=== PATIENT | female | born 1960 | race Caucasian/White ===

== ENCOUNTER → 2016-12-07 | Outpatient (CLI) | payer BC ==
[~2016-12-07] MED LIST: CPR500 PO; OSEL75CA12 PO; OXYC-57 PO
--- NOTE | 2016-12-07 13:07 | MAMMOGRAPHY REPORT ---
BILATERAL DIGITAL SCREENING MAMMOGRAM TOMOSYNTHESIS WITH CAD: 12/07/2016 CLINICAL HISTORY: Routine screening. Patient has no complaints. TECHNIQUE: Breast tomosynthesis in addition to standard 2D mammography was performed. Current study was also evaluated with a Computer Aided Detection (CAD) system. COMPARISON: Comparison is made to exams dated: 12/05/2015 mammogram, 12/03/2014 mammogram - [facility], 04/19/2008, and 04/17/2007. BREAST COMPOSITION: There are scattered areas of fibroglandular density in both breasts. FINDINGS: There are a few benign-appearing calcifications bilaterally. A circumscribed mass in the c entral right breast has decreased in size, confirming benignity. No suspicious mass, architectural d istortion or cluster of suspicious microcalcifications is seen. IMPRESSION: ACR BI-RADS CATEGORY 1: NEGATIVE There is no mammographic evidence of malignancy. A 1 year screening mammogram is recommended. The pa tient will receive written notification of the results. Approximately 10% of breast cancers are not detected with mammography. A negative mammographic report should not delay biopsy if a clinically suggestive mass is present. Maira Berman M.D. ay/:12/07/2016 08:54:45 Supply Chain Procurement Manager: Julisa MEDINA(Ranjit)(Jayleen)([place]), [facility] letter sent: Normal 1/2 BI-RADS Code: ACR BI-RADS Category 1: Negative
== END | disposition home or self-care (01) ==
LOC: C.MAMM 08:32
PROVIDERS: ATTEND Family Medicine
DX: Z12.31 Encounter for screening mammogram for malignant neoplasm of breast (principal)

== ENCOUNTER → 2017-06-07 | Outpatient (CLI) | payer BC ==
[2017-06-07 12:46] LABS: BLOOD UREA NITROGEN 22 mg/dl (7-18); CALCIUM 9.5 mg/dl (8.5-10.1); CARBON DIOXIDE 31 mmol/L (21-32); CREATININE 0.93 mg/dl (0.60-1.20); GLUCOSE 90 mg/dl (70-99); POTASSIUM 4.7 mmol/L (3.5-5.1); SODIUM 139 mmol/L (136-145)
[2017-06-07 12:49] LABS: CHOLESTEROL 160 mg/dl (0-200); LDL CHOLESTEROL CALCULATED 88 mg/dl
== END | disposition home or self-care (01) ==
LOC: C.LABPBG 08:44
PROVIDERS: ATTEND Family Medicine
DX: Z00.00 Encounter for general adult medical examination without abnormal findings (principal); Z13.220 Encounter for screening for lipoid disorders; I10 Essential (primary) hypertension; Z11.59 Encounter for screening for other viral diseases

== ENCOUNTER → 2017-12-09 | Outpatient (CLI) | payer BC ==
--- NOTE | 2017-12-12 07:44 | MAMMOGRAPHY REPORT ---
BILATERAL DIGITAL SCREENING MAMMOGRAM TOMOSYNTHESIS WITH CAD: 12/09/2017 CLINICAL HISTORY: Routine screening. Patient has no complaints. TECHNIQUE: The study was acquired using full field digital technology and interpreted from soft copy. Breast tomosynthesis in addition to standard 2D mammography was performed. Current study was also ev aluated with a Computer Aided Detection (CAD) system. COMPARISON: Comparison is made to exams dated: 12/07/2016 mammogram, 12/05/2015 mammogram, 12/03/2014 [facility], 04/19/2008, and 04/17/2007. BREAST COMPOSITION: There are scattered areas of fibroglandular density in both breasts. FINDINGS: No suspicious masses, calcifications, or areas of architectural distortion are noted in either breast . There has been no significant interval change compared to prior exams. IMPRESSION: ACR BI-RADS CATEGORY 1: NEGATIVE There is no mammographic evidence of malignancy. A 1 year screening mammogram is recommended.( 019) The patient will receive written notification of the results. Some breast cancers are not detected with mammography. A negative mammographic report should not diego y biopsy if a clinically suggestive mass is present. Zenobia Schwab M.D. /:12/09/2017 12:18:48 Church Secretary: Tracy Carl, [facility] letter sent: Normal 1/2 BI-RADS Code: ACR BI-RADS Category 1: Negative
== END | disposition home or self-care (01) ==
LOC: C.MAMM 08:45
PROVIDERS: ATTEND Family Medicine
DX: Z12.31 Encounter for screening mammogram for malignant neoplasm of breast (principal)

== ENCOUNTER 2018-08-09 05:59 | Inpatient (IN) ==
--- NOTE | 2018-08-03 17:36 | PAT Medication Instructions ---
Medication Instructions Date of Service August 03, 2018 Home Medications Celebrex 1 tab PO HS Sertraline 1.5 tab PO QPM Vitamin D 1 tab PO QAM atenolol 50 mg PO BID rizatriptan [Maxalt] 10 mg PO UD PRN ASK your surgeon for instructions Celebrex 1 tab PO HS DO NOT take the morning of surgery Vitamin D 1 tab PO QAM rizatriptan [Maxalt] 10 mg PO UD NEEDED Take morning of surgery With a small sip of water, OTHERWISE NOTHING TO EAT OR DRINK AFTER MIDNIGHT: atenolol 50 mg PO BID rizatriptan [Maxalt] 10 mg PO UD NEEDED Take evening before surgery Sertraline 1.5 tab PO QPM atenolol 50 mg PO BID Other Notes If you have any questions please call us at [phone] or [phone] or [phone] or [phone]
--- NOTE | 2018-08-04 08:47 | History & Physical Report ---
Date of Service August 04, 2018 Date of Surgery: 08-09-18 Assessment & Plan (1) Tricompartment osteoarthritis of right knee: Risks and benefits of procedure discussed in detail today, patient would like to proceed with Right TKA @ [facility] on 08-09-18 as scheduled. will obtain medical clearance prior to surgery as well as obtain PATs at [facility]. Will place on ASA 81mg po bid x 1 month post op, f/u 2 weeks post op for routine post- operative care and xray, sooner if having any problems. will make arrangements for HHPT at the time of discharge. History of Present Illness Chief Complaint: Right knee pain Primary Care Provider: Breann Salinas MD Ms Horta is a 57 year old female who complains of right knee pain, presents for pre-op evaluation prior to right total knee replacement at [facility] on 08-09-18. She presents with pain on the right side and that the symptoms have been chronic non-traumatic. The symptoms occur constantly with intermittent worsening. Currently the patient states that the symptoms are moderate-severe. The pain is described as sharp. She has been treated with Durolane injection previously without any significant relief, as well as previously Synvisc One. pain now affecting her ADLs including walking, standing, using stairs. at this point has failed conservative measures and would like to proceed with a Right TKA. Allergies Allergy/AdvReac Type Severity Reaction Status Date / Time codeine Allergy Mild NAUSES Verified 08/01/18 12:58 VOMITING Home Medications Home Medications Medication Instructions Recorded Confirmed Type Celebrex 1 tab PO HS 08/01/18 08/01/18 History Sertraline 1.5 tab PO QPM 08/01/18 08/01/18 History Vitamin D 1 tab PO QAM 08/01/18 08/01/18 History atenolol 50 mg PO BID 08/01/18 08/01/18 History rizatriptan [Maxalt] 10 mg PO UD PRN 08/01/18 08/01/18 History Past Med/Surg History Medical History GERD (gastroesophageal reflux disease) Hiatal hernia Hypertension Migraine Morbid obesity Osteoarthritis Temporomandibular joint disorder + CLICKING; NO LOCKING Surgical History History of carpal tunnel release RIGHT History of hysterectomy TOTAL Ureter injury S/P REPAIR X 2 (LEFT SIDE) Social History Preferred Language: [place] Communication Ability: Effective Typing Teacher Required: No Beliefs That Will Affect Care: None Current Living Situation: Spouse Other Information That Helps Us Care for You: No Feels Safe at Home: Yes Safety Concerns: Feels Safe At This Time Smoking Status: Never smoker Hx Alcohol Use: No Hx Substance Use: No Review of Systems All systems reviewed & are unremarkable except as noted in HPI & below Constitutional: no fever, no chills and no sweats Respiratory: no cough Cardiovascular: no chest pain, no dyspnea and no orthopnea Gastrointestinal: no nausea and no vomiting Musculoskeletal: as per Subjective / HPI Physical Exam Vital Signs (Past 24 Hours): Ht: 5ft 2in Wt: 104.3kg BP: 142/78 Pulse: 74 Constitutional: WD/WN, vitals as above no acute distress Respiratory: normal respiratory effort, lungs clear to auscultation Cardiovascular: RRR, no murmur, no edema Gastrointestinal (Abdomen): normal bowel sounds, soft, nontender, no hepatosplenomegaly Musculoskeletal: Right Knee Exam neutral alignment, no atrophy or ecchymosis, mild effusion, diffuse tenderness noted, negative patellar apprehension , mild crepitation with motion, Patella position neutral, madelaine's Negative, Blanca's - lateral positive, Blanca's - medial positive, Posterior drawer- Negative, Anterior drawer Negative, Valgus stress Negative, Varus stress Negative, no Extensor lag, Pain with Active range of motion, also passive painful ROM, Range of motion 0/3/120. No pain with active/passive ROM of ankle. Lower Extremity Strength normal. Lower Extremity Neuro-vascular is normal Skin: no rashes and no lesions Results & Data Diagnostic Findings Right Knee X-ray: Right knee series showing advanced degenerative changes to the right knee, narrowing of the medial compartment and patello-femoral joint with patellar spurring noted, findings showing joint space narrowing of the medial compartment and patello-femoral joint, osteophyte formation and subchondral sclerosis noted. overall varus alignment. no acute bony pathology noted.
--- NOTE | 2018-08-04 11:14 | Anesthesiology Consultation ---
Date of Service August 04, 2018 Assessment & Plan (1) Encounter for pre-operative examination: - PCP addendum= 08/07/18= Preop testing reviewed. "Patient was found to be at acceptable CP risk for the planned procedure and may proceed as scheduled." Chart Review Chart Review: Acceptable Risk for Surgery and Patient seen in Pre Admission Testing Consults Requested none Teaching & Discussion Pre-Anesthesia Teaching/Discussion Notes: Instructed NPO after midnight before surgery,except medications with 15 cc of water. Medication instructions provided according to the PAT guidelines. ASA ASA3 Proposed Anesthesia Anesthesia Type: MAC Spinal Regional Regional Laterality: Right Site: Adductor Canal NPO Date Last Intake of Fluids: 08/09/18 Time Last Intake of Fluids: 04:15 Last Intake of Fluids Comment: Sips of water with medications Date Last Intake of Solids: 08/08/18 Time Last Intake of Solids: 17:00 History Surgery Operation Date: 08/09/18 08:20 Proposed Procedures p Right Total Knee Arthroplasty - Isaac Rivero DO Height/Weight Height: 1.57 m Weight: 109.4 kg Allergies Allergy/AdvReac Type Severity Reaction Status Date / Time codeine Allergy Mild NAUSES Verified 08/09/18 06:15 VOMITING Medications Home Medications Medication Instructions Recorded Confirmed Last Taken Vitamin D 1 tab PO QAM 08/01/18 08/09/18 08/08/18 05:00 atenolol 50 mg PO BID 08/01/18 08/09/18 08/09/18 04:15 rizatriptan [Maxalt] 10 mg PO UD PRN 08/01/18 08/09/18 Unknown sertraline [Zoloft] 150 mg PO HS 08/01/18 08/09/18 08/08/18 21:00 celecoxib [Celebrex] 200 mg PO DAILY 08/09/18 08/09/18 08/08/18 05:00 Active Medications Generic Name Dose Route Start Last Admin Trade Name Freq PRN Reason Stop Dose Admin Acetaminophen 1,000 mg 08/09/18 06:00 08/09/18 06:35 Tylenol PO 08/09/18 18:00 1,000 mg PREOP BALDO Administration Celecoxib 200 mg 08/09/18 06:00 08/09/18 06:34 Celebrex PO 08/09/18 18:00 200 mg PREOP BALDO Administration Dexamethasone 8 mg 08/09/18 06:00 08/09/18 06:35 Decadron PO 08/09/18 18:00 8 mg PREOP BALDO Administration Famotidine 20 mg 08/09/18 06:00 08/09/18 06:34 Pepcid PO 08/09/18 18:00 20 mg PREOP BALDO Administration Gabapentin 600 mg 08/09/18 06:00 08/09/18 06:34 Neurontin PO 08/09/18 18:00 600 mg PREOP BALDO Administration Lactated Ringer's 1,000 mls @ 15 mls/hr 08/09/18 06:00 08/09/18 06:18 Lr IV 08/09/18 18:00 15 mls/hr .Q24H BALDO Administration Past Medical History Medical History GERD (gastroesophageal reflux disease) Well controlled Hiatal hernia Hypertension Migraine Osteoarthritis Temporomandibular joint disorder + CLICKING; NO LOCKING Morbid obesity Past Surgical History Surgical History History of carpal tunnel release RIGHT History of hysterectomy TOTAL Ureter injury S/P REPAIR X 2 (LEFT SIDE) Past Anesthesia History No Hx of Anesthesia Complications and No Family Hx of Anesthesia Complications History of PONV No Motion Sickness Screening History of Motion Sickness: No Social History Smoking Status: Never smoker Do You Dip or Chew Tobacco: No Hx Alcohol Use: No Hx Substance Use: No Exercise / Class Metabolic Activity III < 4 Walking/Shop/Light housework Review of Systems Patient denies chest pain, shortness of breath, cough, wheezing, palpitations. Physical Exam Vital Signs Last Vital Signs Temp 36.7 C 08/09/18 06:18 Pulse 54 L 08/09/18 06:18 Resp 16 08/09/18 06:18 BP 129/88 08/09/18 06:18 Pulse Ox 96 08/09/18 06:18 VITALS BP 117/78 P 58 TEMP 97.7 SP02 93%RA RESP 18 PHYSICAL Full neck and c-spine range of motion. Full TMJ range of motion. TMD 3 finger breaths Mallampati Score 1 Dentition: missing molars Lungs: clear throughout to auscultation Cardiac: regular rate and rhythm, no murmurs noted Spine: normal Carotid arteries: negative bruit Extremities: no edema Short neck Constitutional + morbidly obese ENMT Mouth: + TMJ clicking (Never locks up); no TMJ abnormality Thyromental Distance: > or= 3.5 Finger Breadths Mallampati Class: II Neck normal visual inspection; neck extension not limited Respiratory Auscultation: lungs clear to auscultation bilaterally Cardiovascular Rate/Rhythm: regular rate and regular rhythm Musculoskeletal Spine: normal cervical ROM and no pain with cervical ROM Psychiatric Orientation: alert and oriented x 3 Testing Electrocardiogram Date: 08/04/18 Findings: + NSR @ (62) Chest X-Ray Date: 08/04/18 Findings: + NAD Stress Test Date: 08/16/13 Type: DSE DSE "normal" without resting LV wall motion abnormalities or inducible ischemia. LVEF 60-64%. Grade I DD. Mild functional MR. 90%MPHR. Laboratory Results 08/04/18 11:34 Blood Type A Positive 08/04/18 11:34 Antibody Screen NEGATIVE 08/04/18 11:34 PT 10.7 Seconds (9.0-12.0) 08/04/18 11:34 INR 1.0 (0.9-1.1) 08/04/18 11:34 APTT 24.3 Seconds (21.0-31.0) 08/04/18 11:34 Hemoglobin A1c 5.1 % (4.5-5.6) 08/04/18 11:34 Urine Color Yellow 08/04/18 Unknown Urine Appearance Clear (Clear) 08/04/18 Unknown Urine pH 5.5 (4.5-7.5) 08/04/18 Unknown Ur Specific [place] 1.020 (1.000-1.030) 08/04/18 Unknown Urine Protein Negative (Negative) 08/04/18 Unknown Urine Glucose (UA) Negative (Negative) 08/04/18 Unknown Urine Ketones Negative (Negative) 08/04/18 Unknown Urine Nitrite Negative (Negative) 08/04/18 Unknown Ur Leukocyte Esterase Negative (Negative) 08/04/18 Unknown 07/20/18 SODIUM 140 POTASSIUM 4.0 CHLORIDE 109 CO2 25 BUN 18 CREATININE 0.86 GLUCOSE 95
[2018-08-04 12:03] LABS: Basophils # (auto) 0.02 K/uL (0-0.2); Basophils % (auto) 0.3 %; Eosinophils # (auto) 0.25 K/uL (0-0.5); Eosinophils % (auto) 3.3 %; Hemoglobin 14.1 g/dL (12.0-16.0); Immature Granulocytes # (auto) 0.01 K/uL (0.00-0.02); Immature Granulocytes % (auto) 0.1 %; Lymphocytes # (auto) 1.79 K/uL (1.2-3.4); Lymphocytes % (auto) 23.6 %; Mean Corpuscular Hgb Conc 34.4 g/dL (32-36); Mean Corpuscular Volume 89.7 fL (80-100); Mean Platelet Volume 11.2 fL (7.4-10.4); Monocytes # (auto) 0.49 K/uL (0.11-0.59); Monocytes % (auto) 6.5 %; Neutrophils # (auto) 5.03 K/uL (1.4-6.5); Neutrophils % (auto) 66.2 %; Platelet Count 148 K/uL (130-400); RDW Coefficient of Variation 13.3 % (11.5-14.5); RDW Standard Deviation 43.5 fL (36.4-46.3); Red Blood Count 4.57 M/uL (4.2-5.4); White Blood Count 7.59 K/uL (4.8-10.8)
--- NOTE | 2018-08-04 12:09 | XRay Report ---
XR chest Pre-admission PA/Lat HISTORY: Preop. COMPARISON: Chest 07/30/2012. FINDINGS: The lungs are clear. Cardiac silhouette is normal in size. No pleural effusions. No pneumot horax. IMPRESSION: No acute process. Electronically signed by: Finesse Ortiz M.D. 08/04/2018 12:08 PM
[2018-08-04 12:17] LABS: Appearance Urine Clear (Clear); Bilirubin Urine Negative (Negative); Blood Urine Negative (Negative); Color Urine Yellow; Glucose Urine UA Negative (Negative); Ketones Urine Negative (Negative); Leukocyte Esterase Urine Negative (Negative); Nitrite Urine Negative (Negative); Protein Urine Negative (Negative); Urobilinogen Urine Negative (Negative); pH Urine 5.5 (4.5-7.5)
[2018-08-04 12:18] LABS: Partial Thromboplastin Ratio 0.9; Partial Thromboplastin Time 24.3 Seconds (21.0-31.0); Prothrombin Time 10.7 Seconds (9.0-12.0)
[2018-08-04 12:32] LABS: Estimated Average Glucose 100 mg/dl; Hemoglobin A1C 5.1 % (4.5-5.6)
[2018-08-09] MEDS ORDERED: GABAPENTIN 300 MG x 2 PO SCH (06:00)
[2018-08-09] MEDS ORDERED: CeleBREX 200 MG CAP PO SCH (06:00)
[2018-08-09] MEDS ORDERED: FAMOTIDINE 20 MG TAB PO SCH (06:00)
[2018-08-09] MEDS ORDERED: TRANEXAMIC ACID 1,000 MG **IV Pre-op IV SCH (06:00)
[2018-08-09] MEDS ORDERED: dexAMETHasone 4 MG TAB PO SCH (06:00)
[2018-08-09] MEDS ORDERED: ACETAMINOPHEN 500 MG TAB PO SCH (06:00)
[2018-08-09] MEDS ORDERED: CEFAZOLIN 2000MG 2,000 MG/15 ML SYR IV SCH (06:00)
[2018-08-09] MEDS ORDERED: LR 500ML BOLUS, THEN 15ML/HR IV SCH (06:00)
[2018-08-09] MEDS ORDERED: ROPIVACAINE 0.5% HCL/PF 150 MG, BUPIVACAINE 0.5% MPF 30 ML, EPINEPHrine 30MG/30ML (OR U... INFIL SCH (06:00)
[2018-08-09] MEDS ORDERED: TRANEXAMIC ACID 1,000 MG **IV Intra-op IV SCH (06:30)
[2018-08-09] MEDS ORDERED: BUPIVACAINE 0.5 % 5 MG/1 ML PF 10ML VIAL ONE (06:31)
[2018-08-09] MEDS ORDERED: ROPIVACAINE 0.5% 5 MG/ML 30 ML VIAL ONE (06:32)
[2018-08-09] MEDS ORDERED: ATROPINE SULFATE 0.1 MG/ML 10ML SYR IV PRN (06:52)
[2018-08-09] MEDS ORDERED: HYDROmorphone INJ 1 MG/ML SYRINGE IV PRN (06:52)
[2018-08-09] MEDS ORDERED: ONDANSETRON INJ 2 MG/ML 2 ML VIAL IV PRN ×2 (06:52→10:39)
[2018-08-09] MEDS ORDERED: fentaNYL citrate 100 MCG/2 ML VIAL IV PRN (06:52)
[2018-08-09] MEDS ORDERED: ePHEDrine sulfate 50 MG/ML AMP IV PRN (06:52)
[2018-08-09] MEDS ORDERED: PROMETHAZINE HCL 12.5 MG in SODIUM CHLORIDE 0.9% 50 ML IV PRN (06:52)
[2018-08-09] MEDS ORDERED: PHENYLEPHRINE 100MCG/ML 5ML SYR IV PRN (06:52)
[2018-08-09] MEDS ORDERED: MIDAZOLAM HCL 1 MG/ML 2ML VIAL ONE ×2 (06:59→08:01)
[2018-08-09] MEDS ORDERED: PROPOFOL IV EMULSION 10 MG/ML 20 ML VIAL IV ONE (06:59)
[2018-08-09] MEDS ORDERED: LIDOCAINE HCL 2% 2 ML VIAL/AMP(20MG/ML) INFIL ONE (06:59)
[2018-08-09] MEDS ORDERED: fentaNYL citrate 100 MCG/2 ML VIAL ONE (06:59)
--- NOTE | 2018-08-09 07:06 | History & Physical Bridge Note ---
Date of Service August 09, 2018 History & Physical Bridge Note I have examined the patient, reviewed the History & Physical and in the interval since the performance of the History & Physical I have noted the following changes of clinical significance: no changes noted
[2018-08-09] MEDS ORDERED: ORTHO JOINT ANESTHETIC ONE (07:47)
[2018-08-09] MEDS ORDERED: POVIDONE-IODINE OP SOLN 30 ML BTL ONE (07:47)
[2018-08-09] MEDS ORDERED: BACITRACIN INJ 50,000 UNIT VIAL ONE (07:47)
--- NOTE | 2018-08-09 08:06 | Operative Report ---
Post Operative Report Pre & Post Diagnosis Severe end-stage tricompartmental degenerative joint disease right knee Operation Date: 08/09/18 08:20 <No data on this case meets the specified criteria> Severe end-stage tricompartmental degenerative joint disease right knee Procedure Right total knee arthroplasty utilizing [employer] journey to non-bloc total knee arthroplasty size 4 femur size 3 tibia size 9 polyethylene size 29 oval patella Operation Date: 08/09/18 08:20 <No data on this case meets the specified criteria> Surgeon Isaac Rivero DO Bee Producer Al BYRANT Estimated Blood Loss 5 Findings Consistent with Post-Op Diagnosis Patient presents with severe end-stage tricompartmental degenerative joint disease of the right knee no response to conservative management times surgery noted evidence of eburnated bone subchondral sclerosis cystic changes marginal osteophytes pseudo-ligamentous laxity with a large effusion Specimens Bone and cartilage Complications none Disposition Accompanied Patient To Recovery: No Disposition: Recovery Room Indications Patient presents with severe end-stage DJD no response to conservative management including physical therapy anti-inflammatories relative rest activity modification cortical steroid injections Visco supplementations bracing she presents for right total knee arthroplasty Description of Procedure After proper prepping and draping of the Right lower extremity anterior midline incision was made over the region of the extensor extensor mechanism after meticulous hemostasis was obtained and maintained in subcutaneous tissues a medial parapatellar incision was made The patella was subluxed lateralward the medial lateral gutter were cleaned from any hypertrophic synovitis and scar tissue of the distal femoral block was placed and the distal femoral osteotomy cut was made subsequently the chamfers anterior and posterior osteotomy cuts were made utilizing the 4-in-1 block the tibia was subsequently subluxed anteriorward medial and ateral meniscal remnants were excised in their entirety remnants of the anterior and posterior cruciate ligaments were excised in their entirety excellent exposure of the proximal tibia was obtained the tibial osteotomy guide was placed on the proximal tibial osteotomy cut was made once again the knee was irrigated with copious amounts of sterile saline solution the patella was subsequently everted lateralward thickened scar tissue around the patella was removed the patella was subsequently cut utilizing a freehand technique and was drilled prepared for final preparation and placement of patella socially flexion-extension gaps were checked and the equal and symmetric trials were placed to the appropriate femoral and tibial trials with poly-spacer being placed for equal flexion and extension gaps and full range of motion including extension to 0 and flexion to 140 the trial components after having been taken to recovery range of motion was subsequently removed meticulous hemostasis was obtained and maintained subsequently a knee block injection of joint cocktail including ropivacaine 0.5% 150 mg. Bupivacaine 0.5% epinephrine 1-200,030 mL's toradol 30 mg dexamethasone 4 mg ketamine 10 mg clonidine 100 brent rograms normal saline solution 30 mg was infiltrated into the soft tissues of the posterior knee medial lateral gutters and periosteal synovium special attention was paid to protect neurovascular structures at all times subsequently trial components having been removed the knee was irrigated with sterile saline solution. debris was removed the proximal tibia was subsequently prepared and was made ready for the placement of the tibial component tibial component was also cemented and tamped into position the femoral component was subsequently placed and cemented in the position the patellar component was subsequently cemented in position because hemostasis once again obtained and maintained wound having been thoroughly irrigated with debridement and debridement lavage was performed as well as a medial parapatellar incision closed with #1 Vicryl in interrupted fashion subcutaneous was closed with #2 Vicryl skin was closed with skin clips. PA-C was necessary for prepping and drapping as well as wound closure of deep fascia Sub cutaneous tissue and skin and was necessary for the case. A sterile compressive dressing was placed patient was taken to recovery in stable condition of report dictated by Mat I attest to the content of the Intraoperative Record and any orders documented therein. Any exceptions are noted below. I attest to the content of the Intraoperative Record and any orders documented therein. Any exceptions are noted below.
[2018-08-09] MEDS ORDERED: ePHEDrine sulfate 50 MG/ML AMP ONE (08:24)
--- NOTE | 2018-08-09 09:10 | Operative Report ---
Post Operative Report Pre & Post Diagnosis Operation Date: 08/09/18 08:20 Pre-Op Diagnosis: Unilateral Primary Osteoarthritis, Right Knee Post-Op Diagnosis: Unilateral Primary Osteoarthritis, Right Knee Procedure Operation Date: 08/09/18 08:20 Actual Procedures p Right Total Knee Arthroplasty(Right) utilizing journey to non-bloc total knee arthroplasty size 4 femur 3 tibia 9 polyethylene 29 oval patella- Isaac Rivero DO Surgeon Isaac Rivero DO Territory Sales Manager Medical Al BRYANT Estimated Blood Loss 5 Findings Consistent with Post-Op Diagnosis Patient presents with severe end-stage DJD right knee with valgus alignment nettles bchondral sclerosis medial osteophytes Specimens pseudo-ligamentous laxity moderate to large effusion and eburnated with [id number] involving the medial and of the right kneeBone and cartilage Drains Medium bore Hemovac Complications none Disposition Accompanied Patient To Recovery: No Disposition: Recovery Room Indications Patient presents as a very pleasant 57-year-old white female with severe end- stage tricompartmental degenerative joint disease been no response to conservative therapy with physical therapy anti-inflammatories relative rest ac tivity modification corticosteroid injections Visco supplementations patient presents a 4 right total knee arthroplasty Description of Procedure After proper prepping and draping of the Right lower extremity anterior midline incision was made over the region of the extensor extensor mechanism after meticulous hemostasis was obtained and maintained in subcutaneous tissues a medial parapatellar incision was made The patella was subluxed lateralward the medial lateral gutter were cleaned from any hypertrophic synovitis and scar tissue of the distal femoral block was placed and the distal femoral osteotomy cut was made subsequently the chamfers anterior and posterior osteotomy cuts were made utilizing the 4-in-1 block the tibia was subsequently subluxed anteriorward medial and ateral meniscal remnants were excised in their entirety remnants of the anterior and posterior cruciate ligaments were excised in their entirety excellent exposure of the proximal tibia was obtained the tibial osteotomy guide was placed on the proximal tibial osteotomy cut was made once again the knee was irrigated with copious amounts of sterile saline solution the patella was subsequently everted lateralward thickened scar tissue around the patella was removed the patella was subsequently cut utilizing a freehand technique and was drilled prepared for final preparation and placement of patella socially flexion-extension gaps were checked and the equal and symmetric trials were placed to the appropriate femoral and tibial trials with poly-spacer being placed for equal flexion and extension gaps and full range of motion including extension to 0 and flexion to 140 the trial components after having been taken to recovery range of motion was subsequently removed meticulous hemostasis was obtained and maintained subsequently a knee block injection of joint cocktail including ropivacaine 0.5% 150 mg. Bupivacaine 0.5% epinephrine 1-200,030 mL's toradol 30 mg dexamethasone 4 mg ketamine 10 mg clonidine 100 micrograms normal saline solution 30 mg was infiltrated into the soft tissues of the posterior knee medial lateral gutters and periosteal synovium special attention was paid to protect neurovascular structures at all times subsequently trial components having been removed the knee was irrigated with sterile saline solution. debris was removed the proximal tibia was subsequently prepared and was made ready for the placement of the tibial component tibial component was also cemented and tamped into position the femoral component was subsequently placed and cemented in the position the patellar component was subsequently cemented in position because hemostasis once again obtained and maintained wound having been thoroughly irrigated with debridement and debridement lavage was performed as well as a medial parapatellar incision closed with #1 Vicryl in interrupted fashion subcutaneous was closed with #2 Vicryl skin was closed with skin clips. PA-C was necessary for prepping and drapping as well as wound closure of deep fascia Sub cutaneous tissue and skin and was necessary for the case. A sterile compressive dressing was placed patient was taken to recovery in stable condition of report dictated by Mat I attest to the content of the Intraoperative Record and any orders documented therein. Any exceptions are noted below. I attest to the content of the Intraoperative Record and any orders documented therein. Any exceptions are noted below.
--- NOTE | 2018-08-09 10:13 | XRay Report ---
RIGHT KNEE 2 VIEWS History: Right total knee arthroplasty. Degenerative arthritis. Postop. FINDINGS: The patient is status post a right total knee arthroplasty. The hardware is intact. No frac ture or dislocation. Skin edda and surgical drains are in place. IMPRESSION: Right total knee arthroplasty. No evidence for hardware complication. Electronically signed by: Finesse Ortiz M.D. 08/09/2018 10:12 AM
--- NOTE | 2018-08-09 10:34 | Anesthesiology Progress Note ---
Date of Service August 09, 2018 Anesthesia Post Procedure Vital Signs Vital Signs: Temp Pulse Pulse Resp BP Pulse Ox 08/09/18 10:28 36.7 C 60 95 H 109/66 94 08/09/18 10:15 36.7 C 60 95 H 113/59 L 94 08/09/18 10:05 36.4 C L 60 17 114/67 94 08/09/18 09:55 62 14 111/67 95 08/09/18 09:49 36.7 C 60 16 113/60 98 08/09/18 06:18 36.7 C 54 L 16 129/88 96 Notes Mental Status: alert / awake / arousable Patient Amnestic to Procedure: Yes Nausea / Vomiting: adequately controlled Pain: adequately controlled Airway Patency, RR, SpO2: stable & adequate BP & HR: stable & adequate Neuraxial Anesthesia: was administered and sensory block is resolving Anesthetic Complications: no major complications apparent
[2018-08-09] MEDS ORDERED: MAGNESIUM HYDROXIDE SUSP 30 ML UDC PO PRN (10:39)
[2018-08-09] MEDS ORDERED: BISACODYL 10 MG SUPP PR PRN (10:39)
[2018-08-09] MEDS ORDERED: HYDROmorphone INJ 0.5 MG/0.5 ML SYR IV PRN (10:39)
[2018-08-09] MEDS ORDERED: SODIUM CHLORIDE 0.9% 1000ML 1,000 ML IV SCH (10:39)
[2018-08-09] MEDS ORDERED: NALOXONE HCL 0.4 MG/1 ML VIAL/CARP IV PRN (10:39)
[2018-08-09] MEDS ORDERED: RIZATRIPTAN BENZOATE 10 MG TAB PO PRN (10:39)
[2018-08-09] MEDS ORDERED: OXYCODONE HCL IR 5 MG TAB (IMMEDIATE RELEASE) PO PRN (10:39)
[2018-08-09] MEDS: ACETAMINOPHEN 500 MG TAB PO SCH ×2 (13:45→21:45)
[2018-08-09] MEDS: CEFAZOLIN 2000MG 2,000 MG/15 ML SYR IV SCH (16:18)
[2018-08-09] MEDS: DOCUSATE SODIUM 100 MG CAP PO SCH (20:14)
[2018-08-09] MEDS: CeleBREX 200 MG CAP PO SCH (20:14)
[2018-08-09] MEDS: ASPIRIN 81 MG ECTAB PO SCH (20:15)
[2018-08-09] MEDS: ATENOLOL 50 MG TABLET PO SCH (20:19)
[2018-08-09] MEDS ORDERED: SERTRALINE HCL 100 MG TABLET PO SCH (21:00)
[2018-08-09] MEDS ORDERED: SENNA 8.6 MG TAB PO SCH (21:00)
[2018-08-10] MEDS: CEFAZOLIN 2000MG 2,000 MG/15 ML SYR IV SCH (00:20)
[2018-08-10 06:08] LABS: Hematocrit (blood only) 34.7 % (37-47); Hemoglobin 11.9 g/dL (12.0-16.0); Mean Corpuscular Hgb Conc 34.3 g/dL (32-36); Mean Corpuscular Volume 90.1 fL (80-100); Mean Platelet Volume 11.1 fL (7.4-10.4); Platelet Count 131 K/uL (130-400); RDW Coefficient of Variation 13.3 % (11.5-14.5); RDW Standard Deviation 43.2 fL (36.4-46.3); Red Blood Count 3.85 M/uL (4.2-5.4); White Blood Count 12.32 K/uL (4.8-10.8)
[2018-08-10] MEDS: ACETAMINOPHEN 500 MG TAB PO SCH (06:36)
[2018-08-10 06:42] LABS: BUN Creatinine Ratio 19.6 (10-20); Calcium 8.5 mg/dl (8.5-10.1); Est GFR (African American) 74.1; Est GFR (Non-African American) 63.9; Potassium 4.4 mmol/L (3.5-5.1)
--- NOTE | 2018-08-10 06:51 | Orthopedic Progress Note ---
Date of Service August 10, 2018 Assessment & Plan (1) Status post total right knee replacement: POD #1 s/p Right TKA pt/ot dvt proph with ANDREIA/SCD/ASA plan for d/c home with HHPT when stable, recheck after PT today for possible discharge. Subjective POD #1 s/p Right TKA Constitutional: no fever and no chills Respiratory: no cough and no dyspnea Cardiovascular: no chest pain and no dyspnea Gastrointestinal: no nausea and no vomiting Physical Exam Vital Signs (Past 24 Hours): Last Vital Signs Temp 36.9 C 08/10/18 03:43 Pulse 60 08/10/18 03:43 Resp 16 08/10/18 03:43 BP 131/73 08/10/18 03:43 Pulse Ox 96 08/10/18 03:43 Constitutional: WD/WN, vitals as above no acute distress Musculoskeletal: right knee: NVDI, calf SNT, negative khloe sign. DP palpable, able to wiggle toes/ankle movement without difficulty. dressing clean dry and intact. Skin: no rashes, warm and dry Results & Data Laboratory Results Laboratory Results WBC 12.32 K/uL (4.8-10.8) H 08/10/18 05:34 RBC 3.85 M/uL (4.2-5.4) L 08/10/18 05:34 Hgb 11.9 g/dL (12.0-16.0) L 08/10/18 05:34 Hct 34.7 % (37-47) L 08/10/18 05:34 MCV 90.1 fL (80-100) 08/10/18 05:34 MCH 30.9 pg (25-34) 08/10/18 05:34 MCHC 34.3 g/dL (32-36) 08/10/18 05:34 RDW Std Deviation 43.2 fL (36.4-46.3) 08/10/18 05:34 RDW Coeff of Mihir 13.3 % (11.5-14.5) 08/10/18 05:34 Plt Count 131 K/uL (130-400) 08/10/18 05:34 MPV 11.1 fL (7.4-10.4) H 08/10/18 05:34 Immature Gran % (Auto) 0.1 % 08/04/18 11:34 Neut % (Auto) 66.2 % 08/04/18 11:34 Lymph % (Auto) 23.6 % 08/04/18 11:34 [place]lan % (Auto) 6.5 % 08/04/18 11:34 Eos % (Auto) 3.3 % 08/04/18 11:34 Baso % (Auto) 0.3 % 08/04/18 11:34 Immature Gran # (Auto) 0.01 K/uL (0.00-0.02) 08/04/18 11:34 Neut # (Auto) 5.03 K/uL (1.4-6.5) 08/04/18 11:34 Lymph # (Auto) 1.79 K/uL (1.2-3.4) 08/04/18 11:34 [place]lan # (Auto) 0.49 K/uL (0.11-0.59) 08/04/18 11:34 Eos # (Auto) 0.25 K/uL (0-0.5) 08/04/18 11:34 Baso # (Auto) 0.02 K/uL (0-0.2) 08/04/18 11:34 PT 10.7 Seconds (9.0-12.0) 08/04/18 11:34 INR 1.0 (0.9-1.1) 08/04/18 11:34 APTT 24.3 Seconds (21.0-31.0) 08/04/18 11:34 PTT Ratio 0.9 08/04/18 11:34 Sodium 142 mmol/L (136-145) 08/10/18 05:34 Potassium 4.4 mmol/L (3.5-5.1) 08/10/18 05:34 Chloride 112 mmol/L (98-107) H 08/10/18 05:34 Carbon Dioxide 24 mmol/L (21-32) 08/10/18 05:34 Anion Gap 6.0 (3-11) 08/10/18 05:34 BUN 19 mg/dl (7-18) H 08/10/18 05:34 Creatinine 0.97 mg/dl (0.6-1.2) 08/10/18 05:34 Est Cr Clr Drug Dosing 72.0 ml/min 08/10/18 05:34 Est GFR ( Amer) 74.1 08/10/18 05:34 Est GFR (Non-Af Amer) 63.9 08/10/18 05:34 BUN/Creatinine Ratio 19.6 (10-20) 08/10/18 05:34 Glucose 113 mg/dl (70-99) H 08/10/18 05:34 Estimat Average Glucose 100 mg/dl 08/04/18 11:34 Hemoglobin A1c 5.1 % (4.5-5.6) 08/04/18 11:34 Calcium 8.5 mg/dl (8.5-10.1) 08/10/18 05:34 Albumin 3.6 gm/dl (3.4-5.0) 08/04/18 11:34 Urine Color Yellow 08/04/18 Unknown Urine Appearance Clear (Clear) 08/04/18 Unknown Urine pH 5.5 (4.5-7.5) 08/04/18 Unknown Ur Specific [place] 1.020 (1.000-1.030) 08/04/18 Unknown Urine Protein Negative (Negative) 08/04/18 Unknown Urine Glucose (UA) Negative (Negative) 08/04/18 Unknown Urine Ketones Negative (Negative) 08/04/18 Unknown Urine Blood Negative (Negative) 08/04/18 Unknown Urine Nitrite Negative (Negative) 08/04/18 Unknown Urine Bilirubin Negative (Negative) 08/04/18 Unknown Urine Urobilinogen Negative (Negative) 08/04/18 Unknown Ur Leukocyte Esterase Negative (Negative) 08/04/18 Unknown Blood Type A Positive 08/04/18 11:34 Antibody Screen NEGATIVE 08/04/18 11:34 Diagnostic Findings RIGHT KNEE 2 VIEWS History: Right total knee arthroplasty. Degenerative arthritis. Postop. FINDINGS: The patient is status post a right total knee arthroplasty. The hardware is intact. No fracture or dislocation. Skin edda and surgical drains are in place. IMPRESSION: Right total knee arthroplasty. No evidence for hardware complication.
--- NOTE | 2018-08-10 07:45 | Anesthesiology Progress Note ---
Date of Service August 10, 2018 Anesthesia Post Procedure Vital Signs Vital Signs: Temp Pulse Pulse Pulse Resp BP Pulse Ox 08/10/18 03:43 36.9 C 60 16 131/73 96 08/09/18 23:16 36.9 C 60 14 120/70 94 08/09/18 20:18 36.3 C L 80 18 114/67 95 08/09/18 15:13 36.9 C 65 17 97/54 L 93 08/09/18 13:40 61 18 119/67 96 08/09/18 12:40 61 18 134/73 96 08/09/18 12:08 58 L 18 119/67 96 08/09/18 11:22 54 L 18 115/69 97 08/09/18 10:39 36.4 C L 61 18 117/67 92 08/09/18 10:28 36.7 C 60 95 H 109/66 94 08/09/18 10:15 36.7 C 60 95 H 113/59 L 94 08/09/18 10:05 36.4 C L 60 17 114/67 94 08/09/18 09:55 62 14 111/67 95 08/09/18 09:49 36.7 C 60 16 113/60 98 Notes Mental Status: alert / awake / arousable and participated in evaluation Patient Amnestic to Procedure: Yes Nausea / Vomiting: adequately controlled Pain: adequately controlled Airway Patency, RR, SpO2: stable & adequate BP & HR: stable & adequate Hydration State: stable & adequate Neuraxial Anesthesia: sensory block resolved Anesthetic Complications: Pt Satisfied with anesthetic care
[2018-08-10] MEDS: ASPIRIN 81 MG ECTAB PO SCH (08:15)
[2018-08-10] MEDS: DOCUSATE SODIUM 100 MG CAP PO SCH (08:15)
[2018-08-10] MEDS: CeleBREX 200 MG CAP PO SCH (08:15)
[2018-08-10] MEDS: ATENOLOL 50 MG TABLET PO SCH (08:15)
[2018-08-10] MEDS ORDERED: MULTIVITAMIN TAB PO SCH (09:00)
--- NOTE | 2018-08-11 10:25 | Discharge Summary ---
Date of Service August 16, 2018 Admission HPI Per Admitting Provider Ms Horta is a 57 year old female who complains of right knee pain, presents for pre-op evaluation prior to right total knee replacement at [facility] on 08-09-18. She presents with pain on the right side and that the symptoms have been chronic non-traumatic. The symptoms occur constantly with intermittent worsening. Currently the patient states that the symptoms are moderate-severe. The pain is described as sharp. She has been treated with Durolane injection previously without any significant relief, as well as previously Synvisc One. pain now affecting her ADLs including walking, standing, using stairs. at this point has failed conservative measures and would like to proceed with a Right TKA. Discharge Data Consultations 08/09/18 10:39 Consult Case Management - Discharge Planning Routine Procedures Performed Operation Date: 08/09/18 08:20 Actual Procedures p Right Total Knee Arthroplasty(Right) - Isaac Rivero DO
--- NOTE | 2018-08-15 04:53 | Discharge Summary ---
DISCHARGE DIAGNOSIS: Degenerative joint disease, right knee. SECONDARY DIAGNOSES: Gastroesophageal reflux disease, hypertension, migraine headaches, morbid obesity, osteoarthritis, TMJ disorder. CONSULTATIONS: None. COMPLICATIONS: None. PROCEDURES: Right total knee arthroplasty performed by Dr. Rivero on 08/09/2018. BRIEF HISTORY: As dictated in the history and physical. HOSPITAL SUMMARY: The patient was admitted on the above-noted date and had the above-noted surgery performed which she tolerated well. On the first postoperative day, patient denied any fever or chills. No cough or dyspnea. No chest pain. No nausea or vomiting. Vital signs were stable and they were afebrile. The patient was in no acute distress. Pain was controlled. Neurovascularly intact. Calves were soft and nontender. Toes were mobile and dressings clean, dry, and intact. Hemoglobin was 11.9 and patient was started on physical therapy protocol and continued on DVT prophylaxis and pain management. The patient was progressing well with her physical therapy and remaining stable and by the afternoon of 08/10/2018, she was able to be discharged to home with home health services. For further review, please see chart. LABORATORY AND X-RAY DATA: As per chart. DISCHARGE INSTRUCTIONS: The patient was discharged to home in satisfactory condition on 08/10/2018. DIET: Regular. ACTIVITY: Weightbearing as tolerated on the right lower extremity. Follow TK instruction sheets and special care instructions as noted. Follow up with Dr. Rivero in 2 weeks. The patient is to call for appointment if one has not made for you. DISCHARGE MEDICATIONS: Acetaminophen 1000 mg p.o. q. 8 hours, aspirin 81 mg p.o. b.i.d., cefadroxil 500 mg p.o. b.i.d., Celebrex 200 mg p.o. b.i.d., Colace 100 mg p.o. b.i.d., oxycodone 5-10 mg p.o. q. 6 hours p.r.n., resume home meds as listed, and stop taking previous Celebrex dosage.
== END 2018-08-10 13:30 | disposition home health service (06) | DRG 470 ==
LOC: ASU 05:59 → 3E 09:55

== ENCOUNTER 2021-11-25 08:08 | Observation (INO) ==
--- NOTE | 2021-11-12 09:17 | PAT Medication Instructions ---
Medication Instructions Date of Service November 12, 2021 Home Medications Medication Instructions Recorded atenolol 50 mg tablet 50 mg PO BID #60 tab 07/27/21 sertraline 100 mg tablet (Zoloft) 150 mg PO HS #45 tab 07/27/21 rizatriptan 10 mg tablet (Maxalt) 10 mg PO Q2H PRN #12 tab MDD 3 09/28/21 tablets/day atenolol 50 mg tablet 50 mg PO BID sertraline 100 mg tablet (Zoloft) 150 mg PO HS rizatriptan 10 mg tablet (Maxalt) 10 mg PO Q2H PRN cholecalciferol (vitamin D3) 25 mcg (1,000 unit) tablet (Vitamin D3) 25 mcg PO QAM cyanocobalamin (vitamin B-12) 1,000 mcg capsule 1,000 mcg PO QAM DO NOT take the morning of surgery cholecalciferol (vitamin D3) 25 mcg (1,000 unit) tablet (Vitamin D3) 25 mcg PO QAM cyanocobalamin (vitamin B-12) 1,000 mcg capsule 1,000 mcg PO QAM Take morning of surgery With a small sip of water, OTHERWISE NOTHING TO EAT OR DRINK AFTER MIDNIGHT: atenolol 50 mg tablet 50 mg PO BID rizatriptan 10 mg tablet (Maxalt) 10 mg PO Q2H PRN (if needed) Take evening before surgery atenolol 50 mg tablet 50 mg PO BID sertraline 100 mg tablet (Zoloft) 150 mg PO HS rizatriptan 10 mg tablet (Maxalt) 10 mg PO Q2H PRN (if needed) Other Notes If you have any questions please call us at [phone] or [phone] or [phone] or [phone]
--- NOTE | 2021-11-13 12:51 | Anesthesiology Consultation ---
Date of Service November 13, 2021 Assessment & Plan (1) Encounter for pre-operative examination: - Patient acceptable risk for surgery pending surgeon-ordered PCP preop evaluation (11/19; [facility]). - COVID screening: Per assessment on 11/13: No known COVID-19 positive contacts or current COVID-19 related symptoms. Travel screen negative. Surgeon arranging preop COVID testing (scheduled 11/20; [facility]). Awaiting results. - S/P Right TKA (01/09/19): SAB at L3-4 (x1 attempt) + PNB at [facility]. No issues per post-op anesthesia progress note. Chart Review Chart Review: Patient seen in Pre Admission Testing Teaching & Discussion Pre-Anesthesia Teaching/Discussion Notes: Instructed NPO after midnight before surgery,except medications with 15 cc of water. Medication instructions provided according to the PAT guidelines. History Surgery Operation Date: 11/25/21 12:30 Proposed Procedures p Left Total Knee Arthroplasty - Isaac Rivero DO Height/Weight Height: 5 ft 1 in Weight: 117 kg Allergies Allergy/AdvReac Type Severity Reaction Status Date / Time codeine AdvReac Mild N/V Verified 11/12/21 09:13 Medications Home Medications Medication Instructions Recorded Confirmed Last Taken atenolol 50 mg tablet 50 mg PO BID #60 tab 07/27/21 11/12/21 Unknown sertraline 100 mg tablet (Zoloft) 150 mg PO HS #45 tab 07/27/21 11/12/21 Unknown rizatriptan 10 mg tablet (Maxalt) 10 mg PO Q2H PRN #12 tab MDD 3 09/28/21 11/12/21 Unknown tablets/day cholecalciferol (vitamin D3) 25 25 mcg PO QAM 11/12/21 11/12/21 Unknown mcg (1,000 unit) tablet (Vitamin D3) cyanocobalamin (vitamin B-12) 1,000 mcg PO QAM 11/12/21 11/12/21 Unknown 1,000 mcg capsule Past Medical History Medical History Anxiety GERD (gastroesophageal reflux disease) Well controlled Hiatal hernia Hypertension Kidney stones Passed without intervention Migraine Morbid obesity Osteoarthritis Temporomandibular joint disorder + clicking, no locking Tricompartment osteoarthritis of right knee Exercise / Class Metabolic Activity III < 4 Walking/Shop/Light housework Past Family History Family History Father Prostate cancer Hypertension Family hx colonic polyps Mother Epilepsy Liver cancer Sister Crohn's disease Sister Breast cancer Sister No problems noted. Sister No problems noted. Brother No problems noted. Son No problems noted. Daughter No problems noted. Other No family history of adverse response to anesthesia Denies family history of Ovarian cancer Myocardial infarction Past Surgical History Surgical History H/O cataract extraction R/L History of carpal tunnel release Right History of colonoscopy History of hand surgery Left thumb tendon repair, no hardware History of hysterectomy Total Status post total right knee replacement Right TKA (01/09/19): SAB at L3-4 (x1 attempt) + PNB at [facility]. No issues per post-op anesthesia progress note. Right Total Knee Arthroplasty(Right) utilizing journey to non-bloc total knee arthroplasty size 4 femur 3 tibia 9 polyethylene 29 oval patella Ureter injury s/p repair x2 (left side) Past Anesthesia History No Hx of Anesthesia Complications and No Family Hx of Anesthesia Complications History of PONV No Hx of PONV and No Hx of Motion Sickness Social History Smoking Status: Former smoker Do You Dip or Chew Tobacco: No Smoking End Date: Quit 30+ years ago Hx Alcohol Use: Yes Alcohol type: wine and hard liquor alcohol intake frequency: holidays/special occasions only Hx Substance Use: No substance use type: does not use Review of Systems Patient denies chest pain, shortness of breath, fever, chills, cough, wheezing, palpitations. Physical Exam Vital Signs VITALS BP 120/73 P 59 TEMP 98.5 SP02 95%RA RESP 18 PHYSICAL Full cervical extension range of motion. Full TMJ range of motion. TMD 4 finger breaths Mallampati Score 2 Dentition: missing molars Lungs: clear throughout to auscultation Cardiac: regular rate and rhythm, no murmurs noted Spine: normal Carotid arteries: negative bruit Extremities: no edema Short neck Lab Results Anesthesia Preop Results Results Anesthesia Widget: WBC 6.95 K/uL (4.8-10.8) 11/13/21 Hgb 15.0 g/dL (12.0-16.0) 11/13/21 Hct 43.6 % (37-47) 11/13/21 Plt 163 K/uL (130-400) 11/13/21 Na 141 mmol/L (136-145) 11/13/21 K 4.4 mmol/L (3.5-5.1) 11/13/21 Cl 107 mmol/L (98-107) 11/13/21 CO2 31 mmol/L (21-32) 11/13/21 BUN 17 mg/dl (6-23) 11/13/21 Creat 0.93 mg/dl (0.6-1.2) 11/13/21 Glucose Level 107 mg/dl (70-99(Fasting)) H 11/13/21 PT 10.9 Seconds (9.0-12.0) 11/13/21 PTT 25.4 Seconds (21.0-31.0) 11/13/21 INR 1.0 (0.9-1.1) 11/13/21 HA1c 5.2 % (4.5-5.6) 11/13/21 Urine Color Yellow 11/13/21 Urine Appearance Clear (Clear) 11/13/21 Urine pH 5.5 (4.5-7.5) 11/13/21 Urine Specific [place] 1.017 (1.000-1.030) 11/13/21 Urine Protein Negative (Negative) 11/13/21 Urine Glucose (UA) Negative (Negative) 11/13/21 Urine Ketones Negative (Negative) 11/13/21 Urine Blood Negative (Negative) 11/13/21 Urine Nitrite Negative (Negative) 11/13/21 Urine Bilirubin Negative (Negative) 11/13/21 Urine Urobilinogen Negative (Negative) 11/13/21 Urine Leukocyte Esterase Negative (Negative) 11/13/21 Blood Type A Positive 11/13/21 Antibody Screen NEGATIVE 11/13/21 Testing Electrocardiogram Date: 11/13/21 SB at 59bpm. Otherwise normal ECG. Chest X-Ray Date: 11/13/21 Findings: + NAD
--- NOTE | 2021-11-13 13:20 | History & Physical Report ---
Date of Service November 13, 2021 date of surgery: 11/25/21 Procedure: Left Total Knee Arthroplasty Surgeon: Isaac Rivero Assessment & Plan (1) Arthritis of knee, left: Plan: Risks and benefits of procedure discussed in detail today, patient would like to proceed with a left total knee replacement at [facility] as scheduled. will obtain medical clearance prior to surgery as well as obtain PATs at [facility]. Will place on ASA 81mg po bid x 1 month post op, f/u 2 weeks post op for routine post-operative care and x-ray, sooner if having any problems. will make arrangements for HHPT at the time of discharge. At this point in time, has failed conservative measures and would like to proceed with surgical intervention. The risks and benefits have been discussed including, but not limited to, risk of infection, nerve injury, stiffness, loss of motion, failure to improve, etc. Reasonable outcomes and options of treatment were discussed. An explanation of appropriate alternatives to the procedure that may be advantageous were discussed and their risks and benefits, as well as the risks and benefits of not proceeding with treatment. I offered to answer any additional inquiries concerning the treatment involved. All the patient's questions were answered. The patient is agreeable, understanding of the treatment plan and alternatives, and wishes to proceed with the treatment plan. History of Present Illness Chief Complaint: left knee pain Primary Care Provider: Breann Salinas MD [place] is a 60 year old female who complains of left knee pain, presents for pre-op evaluation prior to a left total knee replacement by Dr Rivero at [facility]. She complains of pain and stiffness in his left knee. Currently the patient states that the symptoms are moderate-severe and rated as 8/10. The pain is described as aching, sharp and throbbing. Her symptoms are aggravated by ascending stairs, daily activities, first steps while awake walking. Prior NSAIDs include Aleve and IBU. she has been treated with previous visco injections in the past without much relief. she had prior right TKA and is doing well. she has listed allergy to Codeine, however states she is ok to take Oxycodone. Allergies Allergy/AdvReac Type Severity Reaction Status Date / Time codeine AdvReac Mild N/V Verified 11/12/21 09:13 Home Medications Medication Instructions Recorded Confirmed Type atenolol 50 mg tablet 50 mg PO BID #60 tab 07/27/21 11/12/21 Rx sertraline 100 mg tablet (Zoloft) 150 mg PO HS #45 tab 07/27/21 11/12/21 Rx rizatriptan 10 mg tablet (Maxalt) 10 mg PO Q2H PRN #12 tab MDD 3 09/28/21 11/12/21 Rx tablets/day cholecalciferol (vitamin D3) 25 25 mcg PO QAM 11/12/21 11/12/21 History mcg (1,000 unit) tablet (Vitamin D3) cyanocobalamin (vitamin B-12) 1,000 mcg PO QAM 11/12/21 11/12/21 History 1,000 mcg capsule Past Med/Surg History Medical History Anxiety GERD (gastroesophageal reflux disease) Well controlled Hiatal hernia Hypertension Kidney stones Passed without intervention Migraine Morbid obesity Osteoarthritis Temporomandibular joint disorder + clicking, no locking Tricompartment osteoarthritis of right knee Surgical History H/O cataract extraction R/L History of carpal tunnel release Right History of colonoscopy History of hand surgery Left thumb tendon repair, no hardware History of hysterectomy Total Status post total right knee replacement Right TKA (01/09/19): SAB at L3-4 (x1 attempt) + PNB at [facility]. No issues per post-op anesthesia progress note. Right Total Knee Arthroplasty(Right) utilizing journey to non-bloc total knee arthroplasty size 4 femur 3 tibia 9 polyethylene 29 oval patella Ureter injury s/p repair x2 (left side) Family History Father Prostate cancer Hypertension Family hx colonic polyps Mother Epilepsy Liver cancer Sister Crohn's disease Sister Breast cancer Sister No problems noted. Sister No problems noted. Brother No problems noted. Son No problems noted. Daughter No problems noted. Other No family history of adverse response to anesthesia Denies family history of Ovarian cancer Myocardial infarction Social History Smoking Status: Former smoker Second Hand Exposure: No; Hx Alcohol Use: Yes Alcohol type: wine and hard liquor Alcohol Intake Frequency: Monthly or Less Hx Substance Use: No Preferred Language: Luxembourgish Communication Ability: Effective Visual Impairment: No Limitations Hearing Ability: Normal Higher Education Administrator Required: No Beliefs That Will Affect Care: None marital status: / Current Living Situation: Alone Current Living Situation Comment: [facility] 2 YRS AGO current occupational status: employed 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[employer] How many Children do You have: 2 Feels Safe at Home: Yes Childhood Exposure to Second-Hand Smoke: No caffeine: Yes during the past year weight has: increased > 10 lbs Dental Care, Regularly: Yes Physical Activity Frequency: Does not Exercise Seatbelt Use: always Sunscreen Use: Yes Assistive Devices: None Review of Systems Review of Systems: All systems reviewed & are unremarkable except as noted in HPI & below Constitutional: no fever, no chills and no sweats Respiratory: no cough and no dyspnea Cardiovascular: no chest pain, no dyspnea and no orthopnea Gastrointestinal: no abdominal pain, no nausea and no vomiting Musculoskeletal: as per Subjective / HPI Physical Exam Physical Exam: HT: 5ft 1 in WT: 117 kg Constitutional: WD/WN, vitals as above no acute distress Respiratory: normal respiratory effort, lungs clear to auscultation no respiratory distress, no labored breathing and does not use accessory muscles Cardiovascular: RRR, no murmur, no edema Gastrointestinal (Abdomen): normal bowel sounds, soft, nontender, no hepatosplenomegaly Musculoskeletal: Knee: + knee abnormal to inspection (LEFT KNEE), + effusion (+1 effusion), + limited ROM of knee (ROM 0/3/110), + knee ROM with crepitation, + joint line tenderness (medial joint line) and + Blanca's sign positive; no deformity, no skin erythema, no ecchymosis, no valgus laxity, no varus laxity, anterior drawer test negative, Meet's sign negative and pivot shift test negative Results & Data Results & Data ([facility]) Diagnostic Findings Left Knee X-ray: left knee series confirm advanced degenerative changes to the left knee, greatest medial compartments and patellofemoral joint, showing joint space narrowing, osteophyte formation and subchondral sclerosis. no acute bony pathology noted.
[~2021-11-25 08:08] MED LIST changes: +ACETAMINOPHEN 500 MG TAB PO SCH; +BUPIVACAINE 0.5 % 5 MG/1 ML PF 10ML VIAL ONE; -CPR500 PO; +CeleBREX 200 MG CAP PO SCH; +EPINEPHrine INJ 1 MG/ML AMP ONE; +FAMOTIDINE 20 MG TAB PO SCH; +GABAPENTIN 600 MG DOSE PO SCH; +LIDOCAINE 2% 2 ML VIAL/AMP(20MG/ML) INFIL ONE; +LR 500ML BOLUS, THEN 15ML/HR IV SCH; +METOCLOPRAMIDE HCL 10 MG TABLET PO SCH; +MIDAZOLAM HCL 1 MG/ML 2ML VIAL ONE; +ONDANSETRON INJ 2 MG/ML 2 ML VIAL ONE; -OSEL75CA12 PO; -OXYC-57 PO; +PROPOFOL IV EMULSION 10 MG/ML 20 ML VIAL IV ONE; +ROPIVACAINE 0.5% 5 MG/ML 30 ML VIAL ONE; +ROPIVACAINE 0.5% HCL/PF 150 MG, BUPIVACAINE 0.75% MPF 20 ML, EPINEPHrine 30MG/30ML (OR ... INSTIL SCH; +TRANEXAMIC ACID 1,000 MG **IV Intra-op IV SCH; +TRANEXAMIC ACID 1,000 MG **IV Pre-op IV SCH; +ceFAZolin 2000MG 2,000 MG/15 ML SYR IV SCH; +dexAMETHasone 4 MG TAB PO SCH; +fentaNYL citrate 100 MCG/2 ML VIAL ONE
--- NOTE | 2021-11-25 08:36 | History & Physical Bridge Note ---
Date of Service November 25, 2021 History & Physical Bridge Note I have examined the patient, reviewed the History & Physical and in the interval since the performance of the History & Physical I have noted the following changes of clinical significance: no changes noted
--- NOTE | 2021-11-25 12:01 | Operative Report ---
Post Operative Report Pre & Post Diagnosis Operation Date: 11/25/21 10:50 Pre-Op Diagnosis: Unilateral Primary Osteoarthritis Left Knee morbid obesity Post-Op Diagnosis: Unilateral Primary Osteoarthritis Left Knee morbid obesity BMI 48.8 117.2 kg I identified the patient and participated in the time-out.: Yes Procedure Operation Date: 11/25/21 10:50 Actual Procedures p Left Total Knee Arthroplasty(Left) utilizing [employer] journey 2 nonblock total knee arthroplasty size femur 4 tibia 3 polyeleven patella 29 Isaac Rivero DO Surgeon Isaac Rivero DO Chief Recordist MANNY Sands Estimated Blood Loss 5 Findings Consistent with Post-Op Diagnosis Patient presents with severe end-stage tricompartmental degenerative joint disease eburnated [id number] marginal osteophyte subchondral cystic changes with a moderate to large effusion Specimens Bone and cartilage Drains Medium bore Hemovac Anesthesia Type MAC Spinal Regional Complications none Disposition Accompanied Patient To Recovery: No Disposition: Recovery Room Indications Patient presents with severe end-stage tricompartmental degenerative joint disease failed attempted conservative measures including physical therapy anti- inflammatories relative rest activity modification corticosteroid injection the above intraoperative findings are noted Description of Procedure After proper prepping and draping of the left lower extremity anterior midline incision was made over the region of the extensor extensor mechanism after meticulous hemostasis was obtained and maintained in subcutaneous tissues a medial parapatellar incision was made The patella was subluxed lateralward the medial lateral gutter were cleaned from any hypertrophic synovitis and scar tissue of the distal femoral block was placed and the distal femoral osteotomy cut was made subsequently the chamfers anterior and posterior osteotomy cuts we re made utilizing the 4-in-1 block the tibia was subsequently subluxed anteriorward medial and ateral meniscal remnants were excised in their entirety remnants of the anterior and posterior cruciate ligaments were excised in their entirety excellent exposure of the proximal tibia was obtained the tibial osteotomy guide was placed on the proximal tibial osteotomy cut was made once again the knee was irrigated with copious amounts of sterile saline solution the patella was subsequently everted lateralward thickened scar tissue around the patella was removed the patella was subsequently cut utilizing a freehand technique and was drilled prepared for final preparation and placement of patella socially flexion-extension gaps were checked and the equal and symmetric trials were placed to the appropriate femoral and tibial trials with poly-spacer being placed for equal flexion and extension gaps and full range of motion including extension to 0 and flexion to 140 the trial components after having been taken to recovery range of motion was subsequently removed meticulous hemostasis was obtained and maintained subsequently a knee block injection of joint cocktail including ropivacaine 0.5% 150 mg. Bupivacaine 0.5% epinephrine 1-200,030 mL's toradol 30 mg dexamethasone 4 mg ketamine 10 mg clonidine 100 micrograms normal saline solution 30 mg was infiltrated into the soft tissues of the posterior knee medial lateral gutters and periosteal synovium special attention was paid to protect neurovascular structures at all times subsequently trial components having been removed the knee was irrigated with sterile saline solution. debris was removed the proximal tibia was subsequently prepared and was made ready for the placement of the tibial component tibial component was also cemented and tamped into position the femoral component was subsequently placed and cemented in the position the patellar component was subsequently cemented in position because hemostasis once again obtained and maintained wound having been thoroughly irrigated with debridement and debridement lavage was performed as well as a medial parapatellar incision closed with #1 Vicryl in interrupted fashion subcutaneous was closed with #2 Vicryl skin was closed with skin clips. PA-C was necessary for prepping and drapping as well as wound closure of deep fascia Sub cutaneous tissue and skin and was necessary for the case. A sterile compressive dressing was placed patient was taken to recovery in stable condition of report dictated by Mat I attest to the content of the Intraoperative Record and any orders documented therein. Any exceptions are noted below.Due to the complex nature of the procedure, the entire surgery was performed with the operational assistance of MANNY Sands The surgeon's assistant, under direct supervision, was involved in the actual performance of all aspects of the surgical procedure including hemostasis, tissue retraction and incision, instrument management, patient positioning, and wound closure.The patient is 117.2 kgwith a BMI of 48.8. The patient's habitus did contribute to significant technical difficulty requiring extra time. Additional help was necessary in order to position the patient safely. The use of specialized (longer, deeper) retractors and/or instruments were needed. Due to this, the procedure took 20 minutes longer than the standard total knee arthroplasty." I attest to the content of the Intraoperative Record and any orders documented therein. Any exceptions are noted below.
[2021-11-25] MEDS ORDERED: HYDROmorphone INJ 1 MG/ML SYRINGE IV PRN ×2 (12:38→13:00)
[2021-11-25] MEDS ORDERED: ONDANSETRON INJ 2 MG/ML 2 ML VIAL IV PRN ×2 (12:38→13:00)
[2021-11-25] MEDS ORDERED: NALOXONE HCL 0.4 MG/1 ML VIAL/CARP IV PRN ×2 (12:38→13:00)
[2021-11-25] MEDS ORDERED: oxyCODONE HCL IR 5 MG TAB (IMMEDIATE RELEASE) PO PRN (12:38)
[2021-11-25] MEDS ORDERED: MAGNESIUM HYDROXIDE SUSP 30 ML UDC PO PRN (12:38)
[2021-11-25] MEDS ORDERED: diphenhydrAMINE Capsule 25 MG CAP PO PRN (12:38)
[2021-11-25] MEDS ORDERED: METOCLOPRAMIDE HCL INJ 5 MG/ML 2 ML VIAL IV PRN (12:38)
[2021-11-25] MEDS ORDERED: bisacodyL 10 MG SUPP PR PRN (12:38)
[2021-11-25] MEDS ORDERED: PROMETHAZINE HCL 12.5 MG in SODIUM CHLORIDE 0.9% 50 ML IV PRN (13:00)
[2021-11-25] MEDS ORDERED: ATROPINE SULFATE 0.1 MG/ML 10ML SYR IV PRN (13:00)
[2021-11-25] MEDS ORDERED: ePHEDrine sulfate 50 MG/ML AMP IV PRN (13:00)
[2021-11-25] MEDS ORDERED: LABETALOL HCL IV 5 MG/ML 20ML IV PRN (13:00)
[2021-11-25] MEDS ORDERED: FLUMAZENIL 0.1 MG/1 ML 10 ML VIAL IV PRN (13:00)
[2021-11-25] MEDS ORDERED: fentaNYL citrate 100 MCG/2 ML VIAL IV PRN (13:00)
--- NOTE | 2021-11-25 13:03 | XRay Report ---
XR knee LT 1 or 2V routine CLINICAL HISTORY: Postoperative evaluation. COMPARISON: None FINDINGS: Alignment of the total left knee arthroplasty is anatomic. There is no periprosthetic frac ture or unexpected radiopaque foreign body. There are skin edda and surgical drains. IMPRESSION: Expected findings following total left knee arthroplasty. ACT 112: Negative or not required by law. Electronically signed by: Abdulkadir Muse M.D. 11/25/2021 1:01 PM
--- NOTE | 2021-11-25 13:42 | Anesthesiology Progress Note ---
Date of Service November 25, 2021 Anesthesia Post Procedure Vital Signs Vital Signs: Temp Pulse Pulse Resp BP Pulse Ox 11/25/21 13:20 58 L 20 101/63 96 11/25/21 13:10 55 L 15 100/55 L 97 11/25/21 13:05 36.4 C L 59 L 13 115/68 91 11/25/21 12:55 59 L 12 114/64 97 11/25/21 12:45 60 19 115/66 97 11/25/21 12:35 36.1 C L 63 15 107/69 97 11/25/21 08:49 36.6 C 59 L 22 143/77 H 93 Pain Intensity Left Knee: Pain Intensity: 2 Transfer of Care Handoff Completed per policy Notes Mental Status: alert / awake / arousable Patient Amnestic to Procedure: Yes Nausea / Vomiting: adequately controlled Pain: adequately controlled Airway Patency, RR, SpO2: stable & adequate BP & HR: stable & adequate Hydration State: stable & adequate Neuraxial Anesthesia: was administered and sensory block is resolving Anesthetic Complications: no major complications apparent
[2021-11-25] MEDS ORDERED: RIZATRIPTAN BENZOATE 10 MG TAB PO PRN (14:03)
[2021-11-25] MEDS: ACETAMINOPHEN 500 MG TAB PO SCH ×2 (14:18→21:21)
[2021-11-25] MEDS: SODIUM CHLORIDE 0.9% 1000ML 1,000 ML IV SCH (14:19)
[2021-11-25] MEDS: KETOROLAC TROMETHAMINE 15 MG/ML VIAL IV SCH ×2 (14:25→21:20)
[2021-11-25] MEDS: ceFAZolin 2000MG 2,000 MG/15 ML SYR IV SCH (19:01)
[2021-11-25] MEDS ORDERED: SERTRALINE HCL 50 MG TABLET PO SCH (21:00)
[2021-11-25] MEDS ORDERED: SENNA 8.6 MG TAB PO SCH (21:00)
[2021-11-25] MEDS: ATENOLOL 50 MG TABLET PO SCH (21:21)
[2021-11-25] MEDS: ASPIRIN 81 MG ECTAB PO SCH (21:28)
[2021-11-25] MEDS: DOCUSATE SODIUM 100 MG CAP PO SCH (21:28)
[2021-11-26] MEDS: SODIUM CHLORIDE 0.9% 1000ML 1,000 ML IV SCH (00:45)
[2021-11-26] MEDS: KETOROLAC TROMETHAMINE 15 MG/ML VIAL IV SCH ×2 (03:09→08:31)
[2021-11-26] MEDS: ceFAZolin 2000MG 2,000 MG/15 ML SYR IV SCH (03:09)
[2021-11-26] MEDS: ACETAMINOPHEN 500 MG TAB PO SCH (06:11)
[2021-11-26 07:10] LABS: Hematocrit (blood only) 36.6 % (34.1-44.9); Hemoglobin 12.3 g/dl (12.0-16.0); Mean Corpuscular Hemoglobin 30.1 pg (25.0-34.0); Mean Corpuscular Hgb Conc 33.6 g/dL (32.0-36.0); Mean Corpuscular Volume 89.5 fL (80.0-100.0); Mean Platelet Volume 11.2 fL (9.4-12.3); Platelet Count 129 K/uL (130-400); RDW Standard Deviation 42.7 fL (36.4-46.3); Red Blood Count 4.09 M/uL (3.93-5.22); White Blood Count 10.55 K/ul (4.8-10.8)
[2021-11-26 07:29] LABS: BUN Creatinine Ratio 21.3 (10-20); Calcium 8.7 mg/dl (8.5-10.1); Creatinine Clr Calc Pharmacy 75.6 ml/min; Est GFR (African American) 75.4 ml/min; Potassium 4.3 mmol/L (3.5-5.1)
[2021-11-26] MEDS: ATENOLOL 50 MG TABLET PO SCH (08:30)
[2021-11-26] MEDS: DOCUSATE SODIUM 100 MG CAP PO SCH (08:33)
[2021-11-26] MEDS ORDERED: CYANOCOBALAMIN (B-12) 500 MCG TABLET PO SCH (09:00)
[2021-11-26] MEDS ORDERED: MULTIVITAMIN TAB PO SCH (09:00)
[2021-11-26] MEDS ORDERED: CHOLECALCIFEROL 1,000 UNITS 25 MCG TAB PO SCH (09:00)
[2021-11-26] MEDS: ASPIRIN 81 MG ECTAB PO SCH (09:09)
--- NOTE | 2021-11-26 10:20 | Orthopedic Progress Note ---
Date of Service November 26, 2021 Assessment & Plan (1) Arthritis of knee, left: Plan: Postop day 1 status post left total knee arthroplasty PT/OT protocols. Weightbearing as tolerated. DVT prophylaxis-aspirin p.o. twice daily, SCDs, ANDREIA conde. Management as written. DC planning-planning for home health services upon discharge. Possible discharge to home today. Admission and Anticipated Discharge Date Admission Date: November 25, 2021 Subjective Postop day 1 Patient is currently sitting up in her chair at the bedside. No complaints this morning. Pain is controlled. Denies shortness of breath, chest pain, lightheadedness. She is hoping to go home today. Physical Exam Physical Exam: Dressings are clean, dry, and intact. Calves are soft nontender. Neurovascular is intact. Toes are mobile. She has good dorsiflexion and plantarflexion of the left foot. Hemovac drainage was 150 mL from the previous shift. Results & Data ([facility]) Vital Signs (Past 12 Hours) Vital Signs Temp Pulse Resp BP Pulse Ox 11/26/21 06:12 36.5 C 55 L 14 132/68 93 11/26/21 03:12 36.6 C 54 L 18 110/66 96 11/25/21 22:37 36.8 C 61 18 128/73 93 Laboratory Results Laboratory Results WBC 10.55 K/ul (4.8-10.8) 11/26/21 06:00 RBC 4.09 M/uL (3.93-5.22) 11/26/21 06:00 Hgb 12.3 g/dl (12.0-16.0) 11/26/21 06:00 Hct 36.6 % (34.1-44.9) 11/26/21 06:00 MCV 89.5 fL (80.0-100.0) 11/26/21 06:00 MCH 30.1 pg (25.0-34.0) 11/26/21 06:00 MCHC 33.6 g/dL (32.0-36.0) 11/26/21 06:00 RDW Std Deviation 42.7 fL (36.4-46.3) 11/26/21 06:00 RDW Coeff of Mihir 13.0 % (11.5-14.5) 11/26/21 06:00 Plt Count 129 K/uL (130-400) L 11/26/21 06:00 MPV 11.2 fL (9.4-12.3) 11/26/21 06:00 Sodium 136 mmol/L (136-145) 11/26/21 06:00 Potassium 4.3 mmol/L (3.5-5.1) 11/26/21 06:00 Chloride 108 mmol/L (98-107) H 11/26/21 06:00 Carbon Dioxide 25 mmol/L (21-32) 11/26/21 06:00 Anion Gap 3 (3-11) 11/26/21 06:00 BUN 20 mg/dl (6-23) 11/26/21 06:00 Creatinine 0.94 mg/dl (0.6-1.2) 11/26/21 06:00 Est Cr Clr Drug Dosing 75.6 ml/min 11/26/21 06:00 Est GFR ( Amer) 75.4 ml/min 11/26/21 06:00 Est GFR (Non-Af Amer) 65.0 ml/min 11/26/21 06:00 BUN/Creatinine Ratio 21.3 (10-20) H 11/26/21 06:00 Glucose 112 mg/dl (70-99(Fasting)) H 11/26/21 06:00 Calcium 8.7 mg/dl (8.5-10.1) 11/26/21 06:00 SARS-CoV-2, RNA, NAAT NEGATIVE (NEGATIVE) 11/25/21 08:41 Impressions Knee X-Ray 11/25/21 12:40 XR knee LT 1 or 2V routine CLINICAL HISTORY: Postoperative evaluation. COMPARISON: None FINDINGS: Alignment of the total left knee arthroplasty is anatomic. There is no periprosthetic fracture or unexpected radiopaque foreign body. There are skin edda and surgical drains. IMPRESSION: Expected findings following total left knee arthroplasty. ACT 112: Negative or not required by law. Electronically signed by: Abdulkadir Muse M.D. 11/25/2021 1:01 PM
--- NOTE | 2021-11-26 12:22 | Discharge Summary ---
Date of Service date of discharge: November 26, 2021 date of admission: 11-25-21 Admission HPI Per Admitting Provider Emerald is a 60 year old female who complains of left knee pain, presents for pre-op evaluation prior to a left total knee replacement by Dr Rivero at [facility]. She complains of pain and stiffness in his left knee. Currently the patient states that the symptoms are moderate-severe and rated as 8/10. The pain is described as aching, sharp and throbbing. Her symptoms are aggravated by ascending stairs, daily activities, first steps while awake walking. Prior NSAIDs include Aleve and IBU. she has been treated with previous visco injections in the past without much relief. she had prior right TKA and is doing well. she has listed allergy to Codeine, however states she is ok to take Oxycodone. Principal Diagnosis left knee osteoarthritis Discharge Exam Musculoskeletal left knee: NVDI, calf SNT, negative khloe sign. DP palpable, able to wiggle toes/ankle movement without difficulty. TRUNG dressing clean dry and intact. expected post-operative bruising noted. Discharge Data Allergies Allergy/AdvReac Type Severity Reaction Status Date / Time codeine AdvReac Mild N/V Verified 11/25/21 08:47 Procedures Performed Operation Date: 11/25/21 10:50 Actual Procedures p Left Total Knee Arthroplasty(Left) - Isaac Rivero DO Ordered Studies 11/25/21 05:00 US - OR guided needle placemen Routine Hospital Course (1) Arthritis of knee, left: Postop day 1 status post left total knee arthroplasty PT/OT protocols. Weightbearing as tolerated. DVT prophylaxis-aspirin p.o. twice daily, SCDs, ANDREIA conde. Management as written. DC planning-planning for home health services upon discharge. Possible discharge to home today. Total Time Total Time Spent Total Time Spent (In Minutes): 20 Discharge Plan Discharge Items Patient Disposition: Home - Home Health Services Reason For Visit: Unilateral Primary Osteoarthritis Left Knee Discharge Diagnosis: LEFT TOTAL KNEE REPLACEMENT Activity: Per Instructions section Lifting: Wait until after follow-up appointment Weightbearing: Left weightbearing Weightbearing Comment: As tolerated with WALKER Non-emergency contact: Surgeon Call non-emergency contact if: you have any medication questions, your temperature is above 101, your wound has increased redness, your wound has increased drainage and your wound pain has increased Follow-up/Referrals: Breann Salinas MD [Primary Care Provider] - Diet: Regular Addtl Attending Provider Instructions: ACTIVITY RECOMMENDATIONS: SELF CARE INSTRUCTIONS AFTER TOTAL KNEE REPLACEMENT A. You may need to continue a physical therapy program after discharge from the hospital. There are several options available to you. Your doctor will assist you in selecting the best one for you. 1. An out-patient facility 2 to 3 times a week for therapy or home therapy. 2. Continue working on all exercises taught to you in the hospital. Your goals should be to increase bending of your knee to 90 degrees and beyond and to fully straighten your knee. B. You may progress at your own pace from walking with a walker or crutches to a cane; then to no assistive devices. C. Make walking a part of your daily routine. Be up as much as comfortable with rest periods throughout the day. Rest with leg elevation is very important. Use the ice wrap frequently for the first 3-4 weeks. D. There are no restrictions on activities. 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 E. Wear the long elastic stockings (ANDREIA hose) 20 hours a day for 2 weeks after surgery. They can be removed several times a day for laundering and for a bath. F. You may shower, no tub baths until cleared by your doctor. SPECIAL CARE INSTRUCTIONS: VERY IMPORTANT TO READ AND REVIEW A. There are a few signs you need to watch for after you are home. Call [facility] if you notice any of the followin. Increased severe knee pain. Some pain is expected especially when you exercise. 2. Increased swelling in your leg or knee; pain or swelling of the calf muscle in either lower leg. 3. Any fluid drainage from the incision. 4. Shortness of breath or chest pain. B. Please call [facility] at if you have any concerns or questions about your operation or recovery. The doctor or his nurse will return your call promptly. C. You must take antibiotics before dental work, bladder, bowel or other surgery. Your doctor will provide you with a permanent care to carry describing this precaution. IMPORTANT: * REMEMBER TO TAKE ASPIRIN, 81 MG, TWICE DAILY FOR 4 WEEKS UNLESS OTHERWISE DIRECTED. THIS IS YOUR BLOOD THINNER. * HIGH RISK PATIENTS MAY BE PRESCRIBED A STRONGER BLOOD THINNER. THIS WILL BE PROVIDED AT DISCHARGE. * CALL IF INCREASED PAIN, REDNESS, DRAINAGE OR FEVER GREATER THAT 101. * WEAR ANDREIA HOSE 20 HOURS PER DAY FOR 2 WEEKS. * TRUNG Dressing- This is a large suction dressing covering your incision. This will help pull any excess drainage from the wound and allow your incision to heal properly. You may shower with this if you can keep the unit outside of the shower. If any bleeding or leakage is noted please call your doctor's office. This will remain on your incision for 7 days and then should be removed. This can be done yourself or by the home nursing staff if applicable. The entire unit is disposable once removed. Once removed, keep incision clean and dry. If redness or drainage is noted, please call your surgeon. IF INCISION IS LEAKING THROUGH DRESSING, CALL THE OFFICE . FOLLOW UP VISIT: If appointment is not already scheduled: Please call [facility] to make a follow-up appointment for 2 weeks after your surgery at . Stand-Alone Forms: My [facility] [employer], Smoking Cessation Medications and DC Order Prescriptions: New aspirin 81 mg Tablet,Delayed Release (Dr/Ec) 81 mg PO BID 30 Days Qty: 60 RF: 0 acetaminophen [Tylenol Extra Strength] 500 mg Tablet 1,000 mg PO Q8 14 Days Qty: 84 RF: 0 polyethylene glycol 3350 [Miralax] 17 gram powder in packet 17 g PO DAILY PRN (Reason: constipation) Qty: 5 RF: 0 cefadroxil 500 mg capsule 500 mg PO BID Qty: 28 RF: 1 oxycodone 5 mg Tablet 5 mg PO Q4H MDD 6 PRN (Reason: pain) Qty: 30 RF: 0 Continued atenolol 50 mg tablet 50 mg PO BID Qty: 60 RF: 5 sertraline [Zoloft] 100 mg tablet 150 mg PO HS Qty: 45 RF: 5 rizatriptan [Maxalt] 10 mg tablet 10 mg PO Q2H MDD 3 tablets/day PRN (Reason: migraine headache) Qty: 12 RF: 5 cholecalciferol (vitamin D3) [Vitamin D3] 25 mcg (1,000 unit) Tablet 25 mcg PO QAM RF: 0 cyanocobalamin (vitamin B-12) 1,000 mcg Capsule 1,000 mcg PO QAM RF: 0 Discharge Orders: Discharge Order (Routine); Ordered 11/26/21 Ordered By: Al Mitchell Admission Data Admit Date/Time: 11/25/21 12:38 Attending Provider: Isaac Rivero Admit Provider: Isaac Rivero Primary Care Provider: Breann Salinas
[2021-11-26] MEDS ORDERED: CeleBREX 200 MG CAP PO SCH (21:00)
== END 2021-11-26 15:22 | disposition home health service (06) ==
LOC: 3E 08:08 → ASU 08:08